=== PATIENT | male | born 1955 | race Caucasian/White ===

== ENCOUNTER 2024-02-07 07:21 | Emergency (ER) | payer SELFPAY ==
[~2024-02-07] VITALS: Ht 177.8 cm; Wt 86.6 kg
[2024-02-07 07:34] VITALS: BP 140/107; PULSE 115; RESP 17; O2SAT 97
== END 2024-02-07 08:34 | disposition home or self-care (01) ==
LOC: ER 07:21
DX: I10 Essential (primary) hypertension (principal)